=== PATIENT | female | born 1985 | race Caucasian/White ===

== ENCOUNTER → 2024-03-13 | Outpatient (CLI) | payer OTHER | END | disposition home or self-care (01) | LOC: LABWHC1 08:11 | PROVIDERS: ATTEND Family Medicine | DX: F32.1 Major depressive disorder, single episode, moderate (principal); F41.1 Generalized anxiety disorder | CPT/HCPCS: 36415; 82533 ==

== ENCOUNTER → 2024-03-27 | Outpatient (CLI) | payer OTHER ==
[2024-03-27 16:16] LABS: Gliadin AB IgA, Deaminated Negative (Negative); Gliadin AB IgA, Unit <0.5 U/mL; Gliadin AB IgG, Deaminated Negative (Negative); Gliadin AB IgG, Unit <0.4 U/mL
== END | disposition home or self-care (01) ==
LOC: LABWHC1 07:41
PROVIDERS: ATTEND Internal Medicine Gastroenterology
DX: K59.09 Other constipation (principal)
CPT/HCPCS: 36415; 83516; 85652; 86140

== ENCOUNTER → 2024-04-17 | Outpatient (CLI) | payer OTHER ==
[2024-04-17 17:56] LABS: Clam IgE <0.10 kU/L; Codfish IgE <0.10 kU/L; Egg White IgE <0.10 kU/L; Peanut IgE <0.10 kU/L; Scallop IgE <0.10 kU/L; Shrimp IgE <0.10 kU/L; Soybean IgE <0.10 kU/L; Walnut IgE (Food) <0.10 kU/L
== END | disposition home or self-care (01) ==
LOC: LABWHC1 08:37
PROVIDERS: ATTEND Nurse Practitioner Family
DX: K59.09 Other constipation (principal)
CPT/HCPCS: 36415; 82785; 86003

== ENCOUNTER → 2024-05-07 | Outpatient (CLI) | payer OTHER ==
[2024-05-07 20:08] LABS: Clam IgE <0.10 kU/L; Codfish IgE <0.10 kU/L; Egg White IgE <0.10 kU/L; Peanut IgE 0.16 kU/L; Scallop IgE <0.10 kU/L; Shrimp IgE <0.10 kU/L; Soybean IgE <0.10 kU/L
== END | disposition home or self-care (01) ==
LOC: LABWHC1 07:25
PROVIDERS: ATTEND Family Medicine
DX: K58.9 Irritable bowel syndrome, unspecified (principal); R63.5 Abnormal weight gain
CPT/HCPCS: 36415; 82785; 85652; 86003; 86140

== ENCOUNTER 2024-05-31 07:30 | Day surgery (SDC) | payer OTHER ==
[2024-05-31] MEDS ORDERED: LACTATED RINGERS 1,000 ML BAG ONE (13:30)
[2024-05-31] MEDS ORDERED: PROPOFOL 10 MG/ML 20 ML VIAL IV ONE (13:35)
--- NOTE | 2024-05-31 15:58 | PCN ---
PROCEDURE NOTE REQUESTING PHYSICIAN: Dr. Chely Gutierrez BRIEF HISTORY: The patient is a 39-year-old pleasant white female scheduled for an elective colonoscopy as a part of evaluation of change in bowel habits for the last several months' duration. She has chronic constipation. PROCEDURE PERFORMED: Colonoscopy with snare polypectomy. PREOPERATIVE DIAGNOSIS: Change in bowel habits. ANESTHESIA: IV sedation per Anesthesia. DESCRIPTION OF PROCEDURE: After informed consent was obtained from the patient, she was brought in to the endoscopy unit. IV conscious sedation was administered by Anesthesia under continuous monitoring. Careful examination was performed and the scope was gradually being withdrawn. The ileocecal valve and appendiceal orifice were visualized and appeared normal. The prep was excellent. Mucosa of the cecum, ascending colon, transverse colon, descending colon appeared normal. In the sigmoid colon at 35 cm from the anal verge, there was 2 cm pedunculated polyp removed by snare polypectomy. In the rectum, there was a 5 mm polyp removed by snare polypectomy. Retroflexion was performed in the rectum. No lesions were noted. The patient tolerated the procedure well. IMPRESSION: 1. A 2-cm pedunculated sigmoid colon polyp, status post snare polypectomy. 2. A 5-mm rectal polyp, status post snare polypectomy. RECOMMENDATIONS: Findings of this examination were discussed with the patient as well as her family. She was advised to follow up with the biopsy results. If the biopsy reveals adenoma, she can have a repeat colonoscopy 3 years. MMODL / IJN: [id number] /
== END 2024-05-31 14:32 ==
LOC: ORWHC2ENDO 07:30
PROVIDERS: ATTEND Internal Medicine Gastroenterology
DX: D12.5 Benign neoplasm of sigmoid colon (principal); D12.8 Benign neoplasm of rectum
CPT/HCPCS: 45385; 88305